=== PATIENT | male | born 1960 | race Caucasian/White ===

== ENCOUNTER 2017-05-16 02:17 | Inpatient (IN) | payer BC ==
[~2017-05-16] VITALS: Ht 172.7 cm; Wt 95.3 kg
--- NOTE | 2017-05-16 02:35 | NUR ---
Patient walked into Er, c/o epigastric pain since 2300 tonight, denies any nause/vomiting or diarrhea. States last BM was yesterday 05/15/17. Took tums at home without much relief.
[2017-05-16] MEDS ORDERED: BABY ASA (02:39)
[2017-05-16] MEDS ORDERED: RAMAPRIL (02:39)
[2017-05-16] MEDS ORDERED: CHLORTHALIDONE (02:39)
[2017-05-16] MEDS ORDERED: ATORVASTATIN (02:39)
--- NOTE | 2017-05-16 02:42 | NUR ---
Dr. Thompson at bedside for eval.
[2017-05-16] MEDS ORDERED: PANTOPRAZOLE SODIUM 40 MG TABLET.DR PO ONE ×2 (03:00→03:24)
[2017-05-16 03:12] LABS: BASOPHILS % (AUTO) 0.3 % (0.0-2.0); CREATININE 1.1 mg/dL (0.6-1.3); EOSINOPHILS # (AUTO) 0.3 K/uL (0.0-0.7); EOSINOPHILS % (AUTO) 2.2 % (0.0-7.0); HEMATOCRIT 44.5 % (40-50); HEMOGLOBIN 14.6 G/DL (14.0-18.0); LYMPHOCYTES # (AUTO) 1.4 K/UL (0.8-4.8); LYMPHOCYTES % (AUTO) 11.8 % (20.5-51.5); MEAN CORPUSCULAR HEMOGLOBIN 26.8 UUG (27.0-31.0); MEAN CORPUSCULAR HGB CONC 33 g/dL (32.0-37.0); MEAN CORPUSCULAR VOLUME 81.2 FL (82.0-92.0); MONOCYTES # (AUTO) 0.6 K/UL (0.1-1.30); MONOCYTES % (AUTO) 5.1 % (0.0-11.0); NEUTROPHILS # (AUTO) 9.7 K/UL (1.8-8.9); NEUTROPHILS % (AUTO) 80.6 % (38.5-71.5); PLATELET COUNT (AUTO) 195 K/UL (150-450); POTASSIUM 3.5 mmol/L (3.5-5.1); RED BLOOD CELL COUNT(AUTO) 5.47 MIL/UL (4.7-6.1)
[2017-05-16 03:18] LABS: BILIRUBIN,DIRECT 0.1 mg/dL (0.0-0.2); BILIRUBIN,TOTAL 0.6 mg/dL (0.2-1.0); TOTAL PROTEIN, SERUM 7.7 g/dL (6.4-8.2)
[2017-05-16 03:36] LABS: *BILIRUBIN,URIN NEGATIVE (NEGATIVE); *BLOOD, URINE Trace-intact (NEGATIVE); *CLARITY,URINE CLEAR (CLEAR); *COLOR,URINE YELLOW (YELLOW); *KETONES,URINE NEGATIVE (NEGATIVE); *PROTEIN,URINE NEGATIVE (NEGATIVE); *UROBILINOGEN,URINE 0.2 E.U./dl (NORMAL); LEUKOCYTE ESTERASE ,URINE NEGATIVE (NEGATIVE); NITRITE, URINE NEGATIVE (NEGATIVE); PH,URINE 5.5 (5.0-8.0); UGLUCOSE NEGATIVE (NEGATIVE)
[2017-05-16 03:39] LABS: BACTERIA,URINE FEW /HPF (NONE SEEN); RBC,URINE 0-3 /HPF (0-3); SQUAMOUS EPITHELIAL CELL,UR FEW /HPF (NONE SEEN); WBC,URINE 0-3 /HPF (0-3)
[2017-05-16] MEDS ORDERED: IV NORMAL SALINE 1000 ML BAG IV ONE (03:45)
[2017-05-16] MEDS ORDERED: MORPHINE SULFATE 2 MG/1 ML DISP.SYRIN IV ONE (04:00)
[2017-05-16] MEDS ORDERED: ONDANSETRON 4 MG/2 ML VIAL IV ONE ×3 (04:00→06:30)
[2017-05-16] MEDS ORDERED: ONDANSETRON 4 MG/2 ML VIAL ONE ×2 (04:12→06:28)
[2017-05-16] MEDS ORDERED: MORPHINE SULFATE 2 MG/1 ML DISP.SYRIN ONE (04:12)
[2017-05-16] MEDS ORDERED: HYDROMORPHONE 1 MG/1 ML DISP.SYRIN IV ONE ×2 (04:30→06:15)
[2017-05-16] MEDS ORDERED: HYDROMORPHONE 1 MG/1 ML DISP.SYRIN ONE ×2 (04:41→06:28)
[2017-05-16] MEDS ORDERED: PIPERACILLIN SODIUM/TAZOBACTAM 3.375 G in IV DEXTROSE 5% 50 ML IV ONE (05:00)
--- NOTE | 2017-05-16 05:11 | NUR ---
Call placed to [facility]. Awaiting call from Moustapha Laguna N.P.
[2017-05-16] MEDS ORDERED: PIPERACILLIN/TAZOBACTAM/D5W 50 ML IV ONE (05:14)
[2017-05-16] MEDS ORDERED: RAMI10CA PO (05:19)
[2017-05-16] MEDS ORDERED: ASPI81TA31 PO (05:19)
[2017-05-16] MEDS ORDERED: CHLO25TA2 PO (05:19)
[2017-05-16] MEDS ORDERED: ATOR10TA PO (05:19)
[2017-05-16] MEDS ORDERED: PROPOFOL 200 MG/20 ML BOTTLE IV ONE (06:30)
[2017-05-16] MEDS ORDERED: NEOSTIGMINE METHYLSULFATE 10 MG/10 ML VIAL IV ONE (06:30)
[2017-05-16] MEDS ORDERED: LIDOCAINE HCL 1% 20 ML VIAL MC ONE (06:30)
[2017-05-16] MEDS ORDERED: DEXAMETHASONE SOD PHOSPHATE 4 MG INJ IV ONE (06:30)
[2017-05-16] MEDS ORDERED: KETOROLAC TROMETHAMINE 30 MG INJ IM ONE (06:30)
[2017-05-16] MEDS ORDERED: IV LACTATED RINGERS SOLUTION 1,000 ML BAG MC ONE (06:30)
[2017-05-16] MEDS ORDERED: DESFLURANE ANESTHESIA GAS 240 ML BOTTLE IH ONE (06:30)
[2017-05-16] MEDS ORDERED: GLYCOPYRROLATE 0.2 MG/ML VIAL MC ONE (06:30)
[2017-05-16 06:56] VITALS: BP 124/75
--- NOTE | 2017-05-16 07:02 | NUR ---
Pt. admitted to med surg , under care of Dr. Romero, [place] List completed, pt alert, oriented x 3, no resp distress noted or reported upon transfer assessment...
--- NOTE | 2017-05-16 07:10 | NUR ---
TO OR VIA [facility] FOR SURGERY THIS AM
[2017-05-16] MEDS ORDERED: HYDROMORPHONE 2 MG/1 ML DISP.SYRIN ONE (07:48)
[2017-05-16] MEDS ORDERED: SUCCINYLCHOLINE CHLORIDE 200 MG/10 ML VIAL ONE (07:48)
[2017-05-16] MEDS ORDERED: FENTANYL CITRATE 100 MCG/2 ML AMPUL ONE (07:48)
[2017-05-16] MEDS ORDERED: ROCURONIUM BROMIDE 50 MG/5 ML VIAL ONE (07:48)
[2017-05-16] MEDS ORDERED: BUPIVACAINE 0.25% 30 ML VIAL ONE (07:50)
[2017-05-16 09:50] VITALS: BP 109/69
--- NOTE | 2017-05-16 09:55 | NUR ---
BACK TO ROOM AWAKE ALERT COOPERATE WELL SMALL BANDADEX2 AT ABD D/I NO SOB OR PAIN VS TAKEN STABLR START PO FLD LIQ DIET AT THIS TIME REYNA WELL NO N/V
[2017-05-16 10:10] VITALS: BP 122/71
[2017-05-16] MEDS ORDERED: OXYCODONE/APAP 5-325 MG TABLET PO PRN (10:30)
[2017-05-16] MEDS ORDERED: MORPHINE SULFATE 4 MG/1 ML DISP.SYRIN IV PRN (10:30)
[2017-05-16] MEDS ORDERED: ONDANSETRON 4 MG/2 ML VIAL IV PRN (10:30)
[2017-05-16 10:40] VITALS: BP 120/70
[2017-05-16 11:14] VITALS: BP 110/66
[2017-05-16] MEDS: CEFAZOLIN 1 G in PREMIXED 1 EACH IV SCH ×2 (11:18→17:54)
[2017-05-16] MEDS: POTASSIUM CHLORIDE 20 MEQ in IV D5 1/2 NS 1000 ML 1,000 ML IV PRN (11:18)
--- NOTE | 2017-05-16 12:00 | NUR ---
RESTING WELL NO SOB OR PAIN VS STABLE INCENTIVE SPIROMETER USE INSTRUCTION DOING WELL
--- NOTE | 2017-05-16 12:30 | NUR ---
ECCHO CARDIOGRAM AT BEDSIDE REYNA PROCEDURE WELL Addendum: 05/16/17 at 1245 by FAMILIA CRUZ RN CANCEL ABOVE NOTES WRONG CHART
--- NOTE | 2017-05-16 13:00 | NUR ---
EAT LUNCH MOD AMT NO N/V OR PAIN
--- NOTE | 2017-05-16 14:00 | NUR ---
ASSIST UP TO BRP DOING WELL VOIDING 200ML AT THIS TIME ,DURING ASSIST BACK TO BED STATE FEEL POP OUT AT ABD MID UMBILICAL SITE CHECK ABD INCISION INTACT BUT FEEL LIKE BUMP ON MID ABD TO LEFT SIDE ABD STATE NO PAIN BUT FEEL TENDER RESTING IN BED AT THIS TIME VS STABLE
--- NOTE | 2017-05-16 14:10 | NUR ---
DR CABRERA WAS CALL PATIENT CONDITION IN FORM STATE TO TELL PATIENT IT WAS OK DONOT NEED TO WORRIES ABOUT IT AND PATIENT WAS EXPLAINED DR CABRERA
--- NOTE | 2017-05-16 14:30 | NUR ---
DR GUZMAN WAS HERE PATIENT CONDITION INFORM AND HE WAS SEEN PATIENT THIS PM
[2017-05-16] MEDS ORDERED: MORPHINE SULFATE 2 MG/1 ML DISP.SYRIN IV PRN (15:45)
--- NOTE | 2017-05-16 16:00 | NUR ---
PAIN MED MORPHINE GIVEN ORDER PO FLD REYNA WELL NO N/V CONTINUE IVF AND ANTIBIOTICS
[2017-05-16] MEDS: MORPHINE SULFATE 4 MG/1 ML DISP.SYRIN IV PRN ×2 (16:04→21:12)
--- NOTE | 2017-05-16 18:00 | NUR ---
STABLE HEMODYNAMICS SAFETY MEASURE PROVIDED CALL LIGHT WITHIN REACH AND INSTRUCTION TO CALL WHEN NEED VOIDING WELL AFTER SURGERY
--- NOTE | 2017-05-16 19:35 | NUR ---
PT RECEIVED IN BED, AWAKE. A/OX4. ABLE TO MAKE NEEDS KNOWN. V/S STABLE. NO ACUTE DISTRESS NOTED. NO COMPLAINTS OF PAIN AT THIS TIME. IVF INFUSING. SAFETY MEASURES IMPLEMENTED. CALL LIGHT WITHIN REACH. WILL CONT TO MONITOR.
[2017-05-16 20:26] VITALS: BP 125/77
[2017-05-16] MEDS: ZOLPIDEM 5 MG TABLET PO PRN (23:43)
[2017-05-16] MEDS ORDERED: ZOLPIDEM 5 MG TABLET ONE (23:51)
[2017-05-17] MEDS: POTASSIUM CHLORIDE 20 MEQ in IV D5 1/2 NS 1000 ML 1,000 ML IV PRN ×2 (02:06→23:47)
[2017-05-17] MEDS: CEFAZOLIN 1 G in PREMIXED 1 EACH IV SCH ×4 (02:09→23:45)
[2017-05-17 04:00] VITALS: BP 137/85
[2017-05-17] MEDS: MORPHINE SULFATE 4 MG/1 ML DISP.SYRIN IV PRN ×4 (04:16→20:49)
--- NOTE | 2017-05-17 05:43 | NUR ---
END OF SHIFT NOTES. PT SLEPT INTERMITTENTLY THROUGHOUT SHIFT. NEEDS ATTENDED. V/S STABLE. NO ACUTE DISTRESS NOTED. PT COMPLAINTS OF PAIN AND DISCOMFORT DURING SHIFT. ADMINISTERED PAIN MEDICATIONS ORDERED. IVF INFUSING. SAFETY MAINTAINED. CALL LIGHT WITHIN REACH.
[2017-05-17 08:03] LABS: BASOPHILS % (AUTO) 0.2 % (0.0-2.0); EOSINOPHILS # (AUTO) 0.1 K/uL (0.0-0.7); EOSINOPHILS % (AUTO) 0.8 % (0.0-7.0); HEMATOCRIT 45.2 % (40-50); HEMOGLOBIN 14.9 G/DL (14.0-18.0); LYMPHOCYTES # (AUTO) 1.2 K/UL (0.8-4.8); LYMPHOCYTES % (AUTO) 9.5 % (20.5-51.5); MEAN CORPUSCULAR HEMOGLOBIN 27.5 UUG (27.0-31.0); MEAN CORPUSCULAR HGB CONC 33 g/dL (32.0-37.0); MEAN CORPUSCULAR VOLUME 83.1 FL (82.0-92.0); MONOCYTES # (AUTO) 0.7 K/UL (0.1-1.30); MONOCYTES % (AUTO) 5.7 % (0.0-11.0); NEUTROPHILS # (AUTO) 11.1 K/UL (1.8-8.9); NEUTROPHILS % (AUTO) 83.8 % (38.5-71.5); PLATELET COUNT (AUTO) 209 K/UL (150-450); RED BLOOD CELL COUNT(AUTO) 5.43 MIL/UL (4.7-6.1); WHITE BLOOD COUNT (AUTO) 13.1 K/UL (4.0-11.2)
[2017-05-17 08:19] LABS: BILIRUBIN,TOTAL 1.2 mg/dL (0.2-1.0); MAGNESIUM 1.9 mg/dL (1.8-2.4); PHOSPHOROUS 3.3 mg/dL (2.5-4.9); POTASSIUM 3.7 mmol/L (3.5-5.1); TOTAL PROTEIN, SERUM 7.2 g/dL (6.4-8.2)
--- NOTE | 2017-05-17 10:14 | NUR ---
PT SEEN BY DR CABRERA
[2017-05-17] MEDS ORDERED: LIDOCAINE HCL 1% 20 ML VIAL MC ONE (10:43)
[2017-05-17] MEDS ORDERED: PROPOFOL 200 MG/20 ML BOTTLE IV ONE (10:43)
[2017-05-17] MEDS ORDERED: DEXAMETHASONE SOD PHOSPHATE 4 MG INJ IV ONE (10:43)
[2017-05-17] MEDS ORDERED: IRR NORMAL SALINE IRRIGATION 1,000 ML BOTTLE IR ONE (10:43)
[2017-05-17] MEDS ORDERED: IV LACTATED RINGERS SOLUTION 1,000 ML BAG IV ONE (10:43)
[2017-05-17] MEDS ORDERED: ONDANSETRON 4 MG/2 ML VIAL IV ONE (10:43)
[2017-05-17] MEDS ORDERED: CEFAZOLIN 1 G VIAL MC ONE (10:43)
[2017-05-17] MEDS ORDERED: SEVOFLURANE 250 ML BOTTLE IH ONE (10:43)
[2017-05-17] MEDS ORDERED: NEOSTIGMINE METHYLSULFATE 10 MG/10 ML VIAL IV ONE (10:43)
[2017-05-17] MEDS ORDERED: GLYCOPYRROLATE 0.2 MG/ML VIAL MC ONE (10:43)
[2017-05-17] MEDS ORDERED: KETOROLAC TROMETHAMINE 30 MG INJ IM ONE (10:43)
--- NOTE | 2017-05-17 10:55 | NUR ---
PATIENT VALUABLE SPRAY TECHNICIAN WITH CREDIT CARD AND MONEY RETURN TO HIM
[2017-05-17 11:24] VITALS: BP 126/71
[2017-05-17] MEDS ORDERED: POLYMYXIN B SULFATE 500,000 UNITS, BACITRACIN 50,000 UNITS, NORMAL SALINE 20 ML MC ONE ×3 (11:30)
[2017-05-17] MEDS: PANTOPRAZOLE SODIUM 40 MG VIAL IV SCH (11:30)
[2017-05-17 15:18] VITALS: BP 121/77
[2017-05-17] MEDS ORDERED: BUPIVACAINE 0.25% 30 ML VIAL ONE (17:03)
--- NOTE | 2017-05-17 17:27 | NUR ---
PT WENT TO OR VIA BED FOR SURGERY IN STABLE CONDITION.
[2017-05-17] MEDS ORDERED: SUCCINYLCHOLINE CHLORIDE 200 MG/10 ML VIAL ONE (17:31)
[2017-05-17] MEDS ORDERED: ROCURONIUM BROMIDE 50 MG/5 ML VIAL ONE (17:31)
[2017-05-17] MEDS ORDERED: FENTANYL CITRATE 100 MCG/2 ML AMPUL ONE (17:31)
[2017-05-17] MEDS ORDERED: MIDAZOLAM HCL 2 MG/2 ML VIAL ONE (17:31)
[2017-05-17] MEDS ORDERED: HYDROMORPHONE 1 MG/1 ML DISP.SYRIN ONE (19:12)
[2017-05-17 21:05] VITALS: BP 117/73
--- NOTE | 2017-05-17 21:05 | NUR ---
RECEIVED PATIENT FROM OR FOR [facility] DEPT VIA [facility]. NO ACUTE DISTRESS NOTED. A&O X'S 4. ABLE TO MAKE NEEDS KNOWN. BODY ASSESSMENT DONE. DRESSING IN THE LEFT LOWER ABDOMEN IS [id number]. OS 2L NC. SAFETY INITIATED. CALL LIGHT WITHIN REACH. WILL CONTINUE TO MONITOR.
[2017-05-18] MEDS: ZOLPIDEM 5 MG TABLET PO PRN (01:04)
[2017-05-18 06:36] VITALS: BP 132/77
--- NOTE | 2017-05-18 07:17 | NUR ---
PATIENT SLEPT INTERMITTENTLY T/O SHIFT. FREQUENTLY COMPLAINED OF PAIN IN THE CHEST. MEDS GIVEN ORDERED. STATED RELIEF. ALL NEEDS MET. CALL LIGHT WITHIN REACH.
[2017-05-18] MEDS: CEFAZOLIN 1 G in PREMIXED 1 EACH IV SCH ×2 (09:52→18:30)
[2017-05-18] MEDS: PANTOPRAZOLE SODIUM 40 MG VIAL IV SCH (09:52)
[2017-05-18 11:26] LABS: BASOPHILS % (AUTO) 0.1 % (0.0-2.0); CREATININE 0.9 mg/dL (0.6-1.3); EOSINOPHILS # (AUTO) 0.1 K/uL (0.0-0.7); EOSINOPHILS % (AUTO) 1.2 % (0.0-7.0); HEMATOCRIT 40.9 % (40-50); HEMOGLOBIN 13.5 G/DL (14.0-18.0); LYMPHOCYTES # (AUTO) 1.2 K/UL (0.8-4.8); LYMPHOCYTES % (AUTO) 11.9 % (20.5-51.5); MEAN CORPUSCULAR HEMOGLOBIN 27.2 UUG (27.0-31.0); MEAN CORPUSCULAR HGB CONC 33 g/dL (32.0-37.0); MEAN CORPUSCULAR VOLUME 82.6 FL (82.0-92.0); MONOCYTES # (AUTO) 0.6 K/UL (0.1-1.30); MONOCYTES % (AUTO) 5.9 % (0.0-11.0); NEUTROPHILS # (AUTO) 8.3 K/UL (1.8-8.9); NEUTROPHILS % (AUTO) 80.9 % (38.5-71.5); PLATELET COUNT (AUTO) 205 K/UL (150-450); POTASSIUM 3.7 mmol/L (3.5-5.1); RED BLOOD CELL COUNT(AUTO) 4.95 MIL/UL (4.7-6.1); WHITE BLOOD COUNT (AUTO) 10.2 K/UL (4.0-11.2)
[2017-05-18 11:32] LABS: BILIRUBIN,TOTAL 0.9 mg/dL (0.2-1.0); TOTAL PROTEIN, SERUM 6.5 g/dL (6.4-8.2)
[2017-05-18 12:00] VITALS: BP 118/76
--- NOTE | 2017-05-18 12:00 | NUR ---
CALLED DR. CABRERA, BECAUSE PT WANTS TO TALK TO DR. CABRERA BEFORE GETTING D/C
--- NOTE | 2017-05-18 14:48 | NUR ---
DR. CABRERA IS PAGED SECOND TIME TO REMIND HIM TO COME SEE PT
[2017-05-18 16:15] VITALS: BP 124/73
[2017-05-18] MEDS ORDERED: Oxycodone/Apap 5-325 Mg PO (17:40)
--- NOTE | 2017-05-18 17:50 | NUR ---
DISCHARGE NOTE: PT IS READY TO BE D/C. EDUCATION IS PROVIDED TO THE PT. DRESSING IS INTACT/PATENT. PT REFUSED TO RECEIVE EDUCATION FROM PHARMACIST. Addendum: 05/18/17 at 1921 by ARNAV PRETTY RN NO S/S OF RESPIRATORY DISTRESS NOTED. NO PAIN NOTED. NO DIZZINESS REPORTED. DR. BECK TALKED T THE PT. DRESSING IS CLEAN. NO S/S OF BLEEDING NOTED. IV REMOVED
[2017-05-19] MEDS ORDERED: PANTOPRAZOLE SODIUM 40 MG TABLET.DR PO SCH (07:00)
== END 2017-05-18 18:45 | disposition home or self-care (01) | DRG 341 ==
LOC: ER 02:17 → MED 06:23
PROVIDERS: ADMIT Nurse Practitioner Acute Care; ATTEND Internal Medicine
PROC: 0DTJ4ZZ Resection of Appendix, Percutaneous Endoscopic Approach (ICD-10-PCS; principal; 2017-05-16 07:30)
PROC: 0WQF0ZZ Repair Abdominal Wall, Open Approach (ICD-10-PCS; 2017-05-17)
DX: K35.80 Unspecified acute appendicitis (principal); K85.90 Acute pancreatitis without necrosis or infection, unspecified; K43.0 Incisional hernia with obstruction, without gangrene; Z90.49 Acquired absence of other specified parts of digestive tract; E78.5 Hyperlipidemia, unspecified; E66.9 Obesity, unspecified; Z68.31 Body mass index [BMI] 31.0-31.9, adult; Z86.19 Personal history of other infectious and parasitic diseases; K57.30 Diverticulosis of large intestine without perforation or abscess without bleeding; N28.1 Cyst of kidney, acquired; E86.0 Dehydration; K40.20 Bilateral inguinal hernia, without obstruction or gangrene, not specified as recurrent; I10 Essential (primary) hypertension; Z79.899 Other long term (current) drug therapy
CPT/HCPCS: 36415; 70030-TC; 71010; 83690; 83735; 84100; 85025; 85730; 93005; A4217; A4649; A4663; C9113; J0330; J0690; J1100; J1170; J1885; J2250; J2270; J2405; J2543; J2710; J3010; J3480; J3490; J7030; J7040; J7060; J7120

== ENCOUNTER 2017-12-04 07:39 | Inpatient (IN) | payer BC ==
[~2017-12-04] VITALS: Ht 172.7 cm; Wt 94.8 kg
[~2017-12-04 07:39] MED LIST: ASPI81TA31 PO; ATOR10TA PO; CHLO25TA2 PO; Oxycodone/Apap 5-325 Mg PO; RAMI10CA PO
[2017-12-04 08:13] LABS: BASOPHILS % (AUTO) 0.3 % (0.0-2.0); EOSINOPHILS # (AUTO) 0.1 K/uL (0.0-0.7); HEMATOCRIT 43.9 % (36.7-47.1); HEMOGLOBIN 15.2 g/dL (12.5-16.3); LYMPHOCYTES # (AUTO) 1.4 K/uL (20.0-40.0); LYMPHOCYTES % (AUTO) 15.1 % (20.5-51.5); MEAN CORPUSCULAR HEMOGLOBIN 27.9 uug (23.8-33.4); MEAN CORPUSCULAR HGB CONC 35 g/dL (32.5-36.3); MEAN CORPUSCULAR VOLUME 80.7 fL (73.0-96.2); MONOCYTES # (AUTO) 0.7 K/uL (2.0-10.0); MONOCYTES % (AUTO) 7.7 % (0.0-11.0); NEUTROPHILS # (AUTO) 7.2 K/uL (1.8-8.9); NEUTROPHILS % (AUTO) 75.9 % (38.5-71.5); PLATELET COUNT (AUTO) 210 K/uL (152-348); RED BLOOD CELL COUNT(AUTO) 5.45 MIL/uL (4.06-5.63); WHITE BLOOD COUNT (AUTO) 9.5 K/uL (3.6-10.2)
[2017-12-04] MEDS ORDERED: IV NORMAL SALINE 500 ML IV ONE (08:15)
[2017-12-04 08:16] LABS: *BILIRUBIN,URIN NEGATIVE (NEGATIVE); *BLOOD, URINE NEGATIVE (NEGATIVE); *CLARITY,URINE CLEAR (CLEAR); *COLOR,URINE YELLOW (YELLOW); *KETONES,URINE NEGATIVE (NEGATIVE); *PROTEIN,URINE NEGATIVE (NEGATIVE); LEUKOCYTE ESTERASE ,URINE NEGATIVE (NEGATIVE); NITRITE, URINE NEGATIVE (NEGATIVE); PH,URINE 6.5 (5.0-8.0); UGLUCOSE NEGATIVE (NEGATIVE)
[2017-12-04 08:18] LABS: CREATININE 0.9 mg/dL (0.6-1.3); POTASSIUM 3.1 mmol/L (3.5-5.1)
[2017-12-04 08:25] LABS: BILIRUBIN,TOTAL 2.1 mg/dL (0.2-1.0); TOTAL PROTEIN, SERUM 7.5 g/dL (6.4-8.2)
[2017-12-04 08:36] LABS: BACTERIA,URINE NONE SEEN /HPF (NONE SEEN); RBC,URINE 0-3 /HPF (0-3); SQUAMOUS EPITHELIAL CELL,UR FEW /HPF (NONE SEEN); WBC,URINE 0-3 /HPF (0-3)
[2017-12-04 08:37] LABS: MUCUS,URINE FEW /LPF (0-FEW)
[2017-12-04] MEDS ORDERED: IOHEXOL 300MG/ML 100 ML INFUS..BTL ONE (09:43)
[2017-12-04] MEDS ORDERED: NORMAL SALINE FLUSH 10 ML DISP.SYRIN ONE (09:43)
[2017-12-04] MEDS ORDERED: IV NORMAL SALINE 250 ML IV ONE (09:43)
[2017-12-04] MEDS ORDERED: METRONIDAZOLE 500 MG/NS 100 ML PIGGYBACK IV ONE (10:57)
[2017-12-04] MEDS ORDERED: IV NS 1000 ML 1,000 ML IV PRN (11:00)
[2017-12-04] MEDS ORDERED: METRONIDAZOLE 500 MG/NS 100ML 100 ML IV ONE (11:34)
[2017-12-04] MEDS: CIPROFLOXACIN IV 400 MG in PREMIXED 1 EACH IV SCH ×2 (12:26→12:44)
[2017-12-04] MEDS ORDERED: POTASSIUM CHLORIDE 50 ML IV SCH (12:30)
[2017-12-04 12:44] VITALS: BP 112/66
[2017-12-04] MEDS ORDERED: MORPHINE SULFATE 2 MG/1 ML DISP.SYRIN IV PRN (15:15)
[2017-12-04 15:34] VITALS: BP 118/70
[2017-12-04] MEDS ORDERED: ONDANSETRON 4 MG/2 ML VIAL IV PRN (17:00)
[2017-12-04] MEDS ORDERED: ACETAMINOPHEN 325 MG TABLET PO PRN (17:00)
[2017-12-04] MEDS ORDERED: ZOLPIDEM 5 MG TABLET PO PRN (17:00)
[2017-12-04] MEDS: MORPHINE SULFATE 4 MG/1 ML DISP.SYRIN IV PRN ×2 (17:29→21:44)
[2017-12-04] MEDS: POTASSIUM CHLORIDE 20 MEQ in IV 1/2NS 1000 ML 1,000 ML IV PRN (17:52)
[2017-12-04] MEDS: LEVOFLOXACIN 750MG/D5W 750 MG in PREMIXED 1 EACH IV SCH (17:52)
[2017-12-04 19:56] VITALS: BP 105/69
[2017-12-04] MEDS ORDERED: ATORVASTATIN 10 MG TABLET PO SCH (21:00)
[2017-12-04] MEDS: FAMOTIDINE. 20 MG/2 ML VIAL IV SCH (21:00)
[2017-12-04] MEDS: METRONIDAZOLE 500 MG/NS 100ML 500 MG in PREMIXED 1 EACH IV SCH (21:33)
[2017-12-05 05:24] VITALS: BP 111/68
[2017-12-05] MEDS: METRONIDAZOLE 500 MG/NS 100ML 500 MG in PREMIXED 1 EACH IV SCH ×2 (05:25→13:29)
[2017-12-05] MEDS: MORPHINE SULFATE 4 MG/1 ML DISP.SYRIN IV PRN ×2 (05:50→09:42)
[2017-12-05 06:49] LABS: BASOPHILS % (AUTO) 0.1 % (0.0-2.0); EOSINOPHILS # (AUTO) 0.1 K/uL (0.0-0.7); EOSINOPHILS % (AUTO) 1.3 % (0.0-7.0); HEMATOCRIT 39.6 % (36.7-47.1); HEMOGLOBIN 13.4 g/dL (12.5-16.3); LYMPHOCYTES # (AUTO) 1.2 K/uL (20.0-40.0); LYMPHOCYTES % (AUTO) 14.5 % (20.5-51.5); MEAN CORPUSCULAR HEMOGLOBIN 27.7 uug (23.8-33.4); MEAN CORPUSCULAR HGB CONC 34 g/dL (32.5-36.3); MEAN CORPUSCULAR VOLUME 81.7 fL (73.0-96.2); MONOCYTES # (AUTO) 0.8 K/uL (2.0-10.0); MONOCYTES % (AUTO) 9.3 % (0.0-11.0); NEUTROPHILS # (AUTO) 6.3 K/uL (1.8-8.9); NEUTROPHILS % (AUTO) 74.8 % (38.5-71.5); PLATELET COUNT (AUTO) 183 K/uL (152-348); RED BLOOD CELL COUNT(AUTO) 4.85 MIL/uL (4.06-5.63); WHITE BLOOD COUNT (AUTO) 8.4 K/uL (3.6-10.2)
[2017-12-05 07:11] LABS: BILIRUBIN,TOTAL 2.3 mg/dL (0.2-1.0); CREATININE 0.8 mg/dL (0.6-1.3); MAGNESIUM 2.1 mg/dL (1.8-2.4); PHOSPHOROUS 2.5 mg/dL (2.5-4.9); TOTAL PROTEIN, SERUM 6.5 g/dL (6.4-8.2)
[2017-12-05 07:22] LABS: POTASSIUM 2.8 mmol/L (3.5-5.1)
[2017-12-05] MEDS: FAMOTIDINE. 20 MG/2 ML VIAL IV SCH (08:50)
[2017-12-05] MEDS: POTASSIUM CHLORIDE 20 MEQ in IV 1/2NS 1000 ML 1,000 ML IV PRN (08:52)
[2017-12-05] MEDS ORDERED: RAMIPRIL 5 MG CAPSULE PO SCH (09:00)
[2017-12-05] MEDS ORDERED: ASPIRIN 81 MG TAB.CHEW PO SCH (09:00)
[2017-12-05] MEDS ORDERED: CHLORTHALIDONE 25 MG TABLET PO SCH (09:00)
[2017-12-05 11:04] VITALS: BP 109/66
[2017-12-05] MEDS ORDERED: POTASSIUM CHLORIDE 20 MEQ TAB.PRT.SR PO ONE (11:30)
[2017-12-05 15:00] VITALS: BP 110/66
[2017-12-05] MEDS: LEVOFLOXACIN 750MG/D5W 750 MG in PREMIXED 1 EACH IV SCH (16:55)
[2017-12-05 20:00] VITALS: BP 102/62
[2017-12-05] MEDS ORDERED: LEVO500T2 PO (20:10)
[2017-12-05] MEDS ORDERED: METR500T PO (20:10)
[2017-12-05] MEDS ORDERED: FAMOTIDINE 20 MG TABLET PO SCH (21:00)
== END 2017-12-05 21:31 | disposition home or self-care (01) | DRG 392 ==
LOC: ER 07:39 → MED 12:07
PROVIDERS: ADMIT Internal Medicine; ATTEND Internal Medicine
DX: K57.32 Diverticulitis of large intestine without perforation or abscess without bleeding (principal); N28.1 Cyst of kidney, acquired; R17 Unspecified jaundice; E66.9 Obesity, unspecified; E78.5 Hyperlipidemia, unspecified; Z68.31 Body mass index [BMI] 31.0-31.9, adult; Z90.49 Acquired absence of other specified parts of digestive tract; Z79.82 Long term (current) use of aspirin; Z79.899 Other long term (current) drug therapy; K40.20 Bilateral inguinal hernia, without obstruction or gangrene, not specified as recurrent; I10 Essential (primary) hypertension; E87.6 Hypokalemia; Z86.19 Personal history of other infectious and parasitic diseases
CPT/HCPCS: 36415; 70030-TC; 71045; 83735; 84100; 85025; 93005; A4663; J0744; J1956; J2270; J3480; J3490; J7030; J7050; Q9967

== ENCOUNTER 2018-06-30 08:49 | Emergency (ER) | payer BC ==
[~2018-06-30] VITALS: Ht 172.7 cm; Wt 89.8 kg
[~2018-06-30 08:49] MED LIST changes: +LEVO500T2 PO; +METR500T PO; -Oxycodone/Apap 5-325 Mg PO
[2018-06-30 09:16] LABS: *BILIRUBIN,URIN NEGATIVE (NEGATIVE); *BLOOD, URINE NEGATIVE (NEGATIVE); *CLARITY,URINE CLEAR (CLEAR); *COLOR,URINE YELLOW (YELLOW); *KETONES,URINE NEGATIVE (NEGATIVE); *PROTEIN,URINE NEGATIVE (NEGATIVE); *UROBILINOGEN,URINE 0.2 E.U./dl (NORMAL); LEUKOCYTE ESTERASE ,URINE NEGATIVE (NEGATIVE); NITRITE, URINE NEGATIVE (NEGATIVE); PH,URINE 5.5 (5.0-8.0); UGLUCOSE NEGATIVE (NEGATIVE)
[2018-06-30 09:21] LABS: BACTERIA,URINE NONE SEEN /HPF (NONE SEEN); RBC,URINE NONE SEEN /HPF (0-3); WBC,URINE 0-3 /HPF (0-3)
[2018-06-30 09:22] LABS: SQUAMOUS EPITHELIAL CELL,UR FEW /HPF (NONE SEEN)
[2018-06-30 09:26] LABS: BASOPHILS % (AUTO) 0.2 % (0.0-2.0); EOSINOPHILS # (AUTO) 0.1 K/uL (0.0-0.7); EOSINOPHILS % (AUTO) 2.5 % (0.0-7.0); HEMATOCRIT 44.4 % (36.7-47.1); HEMOGLOBIN 14.9 g/dL (12.5-16.3); LYMPHOCYTES # (AUTO) 1.2 K/uL (20.0-40.0); LYMPHOCYTES % (AUTO) 20.8 % (20.5-51.5); MEAN CORPUSCULAR HEMOGLOBIN 28.5 uug (23.8-33.4); MEAN CORPUSCULAR HGB CONC 34 g/dL (32.5-36.3); MEAN CORPUSCULAR VOLUME 84.6 fL (73.0-96.2); MONOCYTES # (AUTO) 0.5 K/uL (2.0-10.0); MONOCYTES % (AUTO) 7.8 % (0.0-11.0); NEUTROPHILS # (AUTO) 4.1 K/uL (1.8-8.9); NEUTROPHILS % (AUTO) 68.7 % (38.5-71.5); PLATELET COUNT (AUTO) 182 K/uL (152-348); RED BLOOD CELL COUNT(AUTO) 5.25 MIL/uL (4.06-5.63); WHITE BLOOD COUNT (AUTO) 5.9 K/uL (3.6-10.2)
[2018-06-30 09:35] LABS: CREATININE 0.9 mg/dL (0.6-1.3); POTASSIUM 4.2 mmol/L (3.5-5.1)
[2018-06-30 09:40] LABS: BILIRUBIN,DIRECT 0.2 mg/dL (0.0-0.2); BILIRUBIN,TOTAL 1.1 mg/dL (0.2-1.0); TOTAL PROTEIN, SERUM 7.3 g/dL (6.4-8.2)
--- NOTE | 2018-06-30 10:34 | NUR ---
MARICHUY COMPLETED, DR SHEIKH DISCHARGED THE PT, ACI/RX GIVEN. PT AMBULATED W/O DIFF/TOOK ALL BELONGINGS.
[2018-06-30 10:39] VITALS: BP 147/82
== END 2018-06-30 10:39 | disposition home or self-care (01) ==
LOC: ER 08:49
DX: K57.30 Diverticulosis of large intestine without perforation or abscess without bleeding (principal); R10.30 Lower abdominal pain, unspecified; I10 Essential (primary) hypertension; Z90.49 Acquired absence of other specified parts of digestive tract
CPT/HCPCS: 36415; 83690; 85025; A4663